=== PATIENT | female | born 1990 | race Caucasian/White ===

== ENCOUNTER 2017-06-20 14:11 | Emergency (ER) | payer OTHER ==
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
[2017-06-20] MEDS ORDERED: MOTRIN PO ONE (18:22)
[2017-06-20 19:06] VITALS: BP 115/66
== END 2017-06-20 19:05 | disposition home or self-care (01) ==
LOC: ED 14:11
DX: S13.4XXA Sprain of ligaments of cervical spine, initial encounter (principal); V89.2XXA Person injured in unspecified motor-vehicle accident, traffic, initial encounter; Y93.89 Activity, other specified; Y99.9 Unspecified external cause status; Y92.410 Unspecified street and highway as the place of occurrence of the external cause
CPT/HCPCS: 99282